=== PATIENT | male | born 2000 | race Caucasian/White ===

== ENCOUNTER 2019-01-30 23:02 | Emergency (ER) | payer BC, MEDICAID, OTHER ==
[~2019-01-30] VITALS: Ht 175.3 cm; Wt 74.8 kg
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
[2019-01-31] MEDS ORDERED: LIDOCAINE 1% INJ 20 ML 20 ML VIAL INJ ONE (01:00)
[2019-01-31] MEDS ORDERED: TETANUS,DIPTH,PERTUSS P/F (BOOSTRIX) 0.5 ML VIAL IM ONE (01:00)
== END 2019-01-31 02:37 | disposition home or self-care (01) ==
LOC: EDUNIT# 23:02 → ER FS 23:06
DX: S61.216A Laceration without foreign body of right little finger without damage to nail, initial encounter (principal); Z23 Encounter for immunization; W26.0XXA Contact with knife, initial encounter
CPT/HCPCS: 90715; 99284